=== PATIENT | female | born 1975 | race Two or more races ===

== ENCOUNTER 2018-04-13 12:28 | Emergency (ER) | payer MEDICAID ==
[~2018-04-13] VITALS: Ht 157.5 cm; Wt 84.0 kg
[2018-04-13 12:43] VITALS: BP 162/90
[2018-04-13 13:18] LABS: BASOPHILS % 0.7 % (0.0-2.0); HEMATOCRIT. 37.4 % (36.0-48.0); HEMOGLOBIN. 12.6 g/dL (12.0-16.0); LYMPHOCYTES % 32.8 % (20.0-50.0); MEAN CORPUSCULAR HEMOGLOBIN 28.4 pg (28.0-32.0); MEAN CORPUSCULAR VOLUME 84.1 fL (81.0-99.0); MEAN PLATELET VOLUME 8.6 fl (7.4-10.4); MONOCYTES % 5.2 % (2.0-8.0); NEUTROPHILS % 57.3 % (40.0-76.0); PLATELET 310 x1000/uL (130-400); RED BLOOD CELL COUNT 4.45 mill/uL (4.2-5.4); RED CELL DISTRIBUTION WIDTH 14.1 % (11.6-14.6)
[2018-04-13 13:22] LABS: CHLORIDE 105 mEq/L (98-107)
[2018-04-13 13:23] LABS: PROTHROMBIN TIME 10.1 sec (9.4-11.6)
[2018-04-13] MEDS ORDERED: PREDNISONE 20MG TABLET PO ONE (14:30)
[2018-04-13] MEDS ORDERED: ACETAMINOPHEN 325MG TABLET PO ONE (14:30)
[2018-04-13] MEDS ORDERED: DIPHENHYDRAMINE 25MG CAPSULE PO ONE (14:30)
== END 2018-04-13 14:56 | disposition home or self-care (01) ==
LOC: ER 12:28
DX: R10.9 Unspecified abdominal pain (principal); Z87.442 Personal history of urinary calculi
CPT/HCPCS: 36415; 80048; 85025; 85610; 99284

== ENCOUNTER 2020-12-11 13:20 | Emergency (ER) | payer MEDICAID ==
[~2020-12-11] VITALS: Ht 149.9 cm; Wt 72.0 kg
[2020-12-11] MEDS ORDERED: MORPHINE SULFATE 4 MG/ML CPJ (NOT FOR IM USE) IV STA (14:24)
[2020-12-11] MEDS ORDERED: ONDANSETRON HCL 4MG/2ML INJ IV STA (14:24)
[2020-12-11] MEDS ORDERED: SODIUM CHLORIDE 0.9% 1,000 ML IV ONE (14:30)
[2020-12-11 14:38] LABS: HEMATOCRIT. 41.5 % (36.0-48.0); MEAN CORPUSCULAR HEMOGLOBIN 28.8 pg (28.0-32.0); MEAN CORPUSCULAR VOLUME 85.7 fL (81.0-99.0); MEAN PLATELET VOLUME 8.9 fl (7.4-10.4); PLATELET 336 x1000/uL (130-400); RED BLOOD CELL COUNT 4.84 mill/uL (4.2-5.4); RED CELL DISTRIBUTION WIDTH 13.8 % (11.6-14.6)
[2020-12-11 14:39] LABS: CHLORIDE 97 mEq/L (98-107)
[2020-12-11 14:51] LABS: HCG SCREEN NEGATIVE
[2020-12-11 15:59] LABS: PLATELET ESTIMATE NORMAL
[2020-12-11] MEDS ORDERED: POTASSIUM CHLORIDE 20MEQ TABLET SR PO ONE (16:15)
[2020-12-11] MEDS ORDERED: IBUP-2028 MT (16:33)
[2020-12-11] MEDS ORDERED: IOHEXOL-300 100 ML BOTTLE ONE (16:42)
[2020-12-11 17:02] VITALS: BP 120/78
== END 2020-12-11 17:06 | disposition home or self-care (01) ==
LOC: ER 13:20
DX: M79.622 Pain in left upper arm (principal); R20.0 Anesthesia of skin; I10 Essential (primary) hypertension; Z87.442 Personal history of urinary calculi
CPT/HCPCS: 36415; 71045; 71260; 80053; 82962; 84703; 85025; 93005; 96374; 96375; 99285; J2270; J2405; J7030; Q9967; Z7610

== ENCOUNTER 2023-02-23 12:10 | Emergency (ER) | payer MEDICAID ==
[~2023-02-23] VITALS: Ht 152.4 cm; Wt 73.0 kg
[~2023-02-23 12:10] MED LIST: IBUP-2028 MT
[2023-02-23] MEDS ORDERED: SODIUM CHLORIDE 0.9% 1,000 ML IV ONE (12:45)
[2023-02-23] MEDS ORDERED: KETOROLAC 15MG/ML VIAL IV ONE (12:45)
[2023-02-23 12:47] LABS: CLARITY URINE TURBID (CLEAR); COLOR URINE YELLOW (YELLOW); KETONES URINE TRACE (NEGATIVE); LEUKOCYTE ESTERASE URINE 1+ (NEGATIVE); NITRITE URINE NEGATIVE (NEGATIVE); OCCULT BLOOD URINE 3+ (NEGATIVE); PH URINE 8.5 (4.5-8.0); PROTEIN URINE NEGATIVE (NEGATIVE); SPECIFIC GRAVITY URINE 1.018 (1.005-1.030)
[2023-02-23 13:02] LABS: BASOPHILS % 0.9 % (0.0-2.0); HEMOGLOBIN. 13.2 g/dL (12.0-16.0); LYMPHOCYTES % 21.7 % (20.0-50.0); MEAN CORPUSCULAR HEMOGLOBIN 27.9 pg (28.0-32.0); MEAN CORPUSCULAR VOLUME 82.3 fL (81.0-99.0); MEAN PLATELET VOLUME 7.5 fl (7.4-10.4); MONOCYTES % 5.7 % (2.0-8.0); NEUTROPHILS % 68.7 % (40.0-76.0); PLATELET 426 x1000/uL (130-400); RED BLOOD CELL COUNT 4.74 mill/uL (4.2-5.4); RED CELL DISTRIBUTION WIDTH 14.5 % (11.6-14.6)
[2023-02-23 13:07] LABS: CHLORIDE 105 mEq/L (98-107)
[2023-02-23 13:35] LABS: HCG SCREEN NEGATIVE
[2023-02-23] MEDS ORDERED: CEFTRIAXONE 1GM PREMIX 50 ML IV ONE (14:45)
[2023-02-23] MEDS ORDERED: ACET-2708 MT (17:47)
[2023-02-23] MEDS ORDERED: CIPR-263 MT (17:47)
[2023-02-23] MEDS ORDERED: IBUP-2028 MT (17:47)
[2023-02-23] MEDS: MORPHINE SULFATE 2 MG/ML CPJ (NOT FOR IM USE) IV ONE ×2 (18:08→18:17)
[2023-02-23] MEDS: ACETAMINOPHEN 325MG TABLET PO ONE ×2 (18:12→18:16)
[2023-02-23 18:17] VITALS: BP 129/75
== END 2023-02-23 18:19 | disposition home or self-care (01) ==
LOC: ER 12:23
DX: N83.202 Unspecified ovarian cyst, left side (principal); I10 Essential (primary) hypertension; Z86.59 Personal history of other mental and behavioral disorders; Z98.51 Tubal ligation status; Z98.890 Other specified postprocedural states
CPT/HCPCS: 36415; 74176; 76830; 76856; 80053; 81003; 81025; 83690; 84703; 85025; 93976; 96361; 96365; 96366; 96375; 99285; J0696; J1885; J2270; J7030; Z7610